=== PATIENT | male | born 2000 | race Caucasian/White ===

== ENCOUNTER 2018-04-24 05:11 | Emergency (ER) | payer MEDICAID ==
[~2018-04-24] VITALS: Ht 195.6 cm; Wt 77.1 kg
[~2018-04-24 05:11] MED LIST: AZIT200SU PO
[2018-04-24] MEDS ORDERED: IBUP800 PO (06:43)
[2018-04-24] MEDS ORDERED: Norco 10-325 T1 EACH PO (06:43)
== END 2018-04-24 06:54 | disposition home or self-care (01) ==
LOC: ER 05:11
DX: S93.601A Unspecified sprain of right foot, initial encounter (principal); F17.210 Nicotine dependence, cigarettes, uncomplicated; X50.9XXA Other and unspecified overexertion or strenuous movements or postures, initial encounter
CPT/HCPCS: 73610; 99283

== ENCOUNTER 2019-04-21 03:42 | Emergency (ER) | payer OTHER ==
[~2019-04-21] VITALS: Ht 180.3 cm; Wt 70.3 kg
[~2019-04-21 03:42] MED LIST changes: +IBUP800 PO; +Norco 10-325 T1 EACH PO
== END 2019-04-21 05:52 | disposition home or self-care (01) ==
LOC: ER 03:42
DX: S81.812A Laceration without foreign body, left lower leg, initial encounter (principal); F17.210 Nicotine dependence, cigarettes, uncomplicated; W19.XXXA Unspecified fall, initial encounter
CPT/HCPCS: 12002; 99282-25

== ENCOUNTER 2022-06-15 00:04 | Emergency (ER) | payer SELFPAY ==
[~2022-06-15] VITALS: Ht 177.8 cm; Wt 90.7 kg
== END 2022-06-15 02:18 | disposition home or self-care (01) ==
LOC: ER 00:04
DX: S01.01XA Laceration without foreign body of scalp, initial encounter (principal); W22.8XXA Striking against or struck by other objects, initial encounter; F17.210 Nicotine dependence, cigarettes, uncomplicated; Z79.899 Other long term (current) drug therapy
CPT/HCPCS: 12001; 99282